=== PATIENT | female | born 1990 | race Caucasian/White ===

== ENCOUNTER 2023-08-06 11:43 | Emergency (ER) | payer MEDICAID ==
[~2023-08-06] VITALS: Ht 167.6 cm; Wt 90.7 kg
[2023-08-06 11:55] VITALS: BP 119/67; PULSE 98; RESP 18; TEMP 98; O2SAT 98
[2023-08-06] MEDS ORDERED: LOTRC TP (12:31)
[2023-08-06 12:43] VITALS: BP 119/67; PULSE 98; RESP 18; TEMP 98; O2SAT 98
== END 2023-08-06 12:44 | disposition home or self-care (01) ==
LOC: MED 11:43
DX: R21 Rash and other nonspecific skin eruption (principal); Z79.899 Other long term (current) drug therapy; Z88.2 Allergy status to sulfonamides
CPT/HCPCS: 81002; 81025; 99283